=== PATIENT | female | born 1970 | race African-American/Black ===

== ENCOUNTER 2017-06-16 05:24 | Inpatient (IN) ==
[2017-06-09 12:42] LABS: Basophils % 0.7 % (0.0-0.8); Eosinophils # 0.1 10*3/uL (0.0-0.87); Eosinophils % 1.6 % (0.00-10.9); Hematocrit 39.6 VOL% (35.7-47.0); Immature Granulocytes % 0.2 %; Immature Granulocytes Absolute 0.01 #; Lymphocytes % 48.6 % (21.3-54.2); Mean Corpuscular HGB Conc 32.8 GM/DL (32-36); Mean Corpuscular Hemoglobin 29 PG (27-34); Mean Corpuscular Volume 89.6 FL (87-102); Mean Platelet Volume 10.2 FL (9.6-12.0); Monocytes # 0.3 10*3/uL (0.11-0.8); Monocytes % 5.6 % (1.7-12.7); Neutrophils # 2.6 10*3/uL (1.4-7.4); Neutrophils % 43.3 % (38.7-73.9); Platelet Count 316 T/CUMM (130-400); Red Blood Count 4.42 MC/CUMM (3.8-5.5); Red Cell Distribution Width 16.1 % (9.3-17.3); White Blood Count 6.1 T/CUMM (4-12)
[2017-06-09 12:50] LABS: Apearance,Urine CLEAR (Clear); Bilirubin,Urine Negative (Negative); Blood, Urine Negative (Negative); Glucose,Urine (UA) Negative (Negative); INR 0.9; Ketones,Urine Negative (Negative); Mucus,Urine Occasional /LPF (Occasional); Nitrite,Urine Negative (Negative); Partial Thromboplastin Time 27.5 SECS (0-40); Protein,Urine Negative; Squamous Epithelial Cell,Urine Occasional /HPF (0-10); Urine Color Yellow (Yellow); Urine Specific Gravity 1.013 (1.001-1.035); Urine Urobilinogen < 2.0 EU/DL (0.2-1.0); WBC,Urine <1 /HPF (0-6)
[2017-06-09 13:13] LABS: Alanine Aminotransferase 11 U/L (13-56); Albumin 3.1 G/DL (3.4-5.0); Alkaline Phosphatase 63 U/L (45-117); Aspartate Amino Transferase 9 U/L (0-37); Bilirubin,Total < 0.39 MG/DL (0.2-1.0); Blood Urea Nitrogen 9 MG/DL (7-18); Calcium 9.3 MG/DL (8.5-10.1); Glucose 80 MG/DL (74-106); Osmolality,Calculated 274.5 MOS/KG (273-304); Sodium 139 MMOL/L (136-145); Total Protein 7.6 G/DL (6.4-8.3)
[2017-06-16] MEDS ORDERED: ALBUTEROL 2.5 MG/3 ML NEB RESP TX ONE (06:00)
[2017-06-16] MEDS ORDERED: FAMOTIDINE 20 MG TABLET PO ONE (06:00)
[2017-06-16] MEDS ORDERED: DIAZEPAM 5 MG TABLET PO ONE ×2 (06:00→06:53)
[2017-06-16] MEDS ORDERED: VANCOMYCIN INJ 1,000 MG in SODIUM CHLORIDE 0.9% 250 ML IV ONE (06:00)
[2017-06-16] MEDS ORDERED: ceFAZolin 1,000 MG in SYRINGE 1 EACH IV ONE (06:00)
[2017-06-16] MEDS ORDERED: ceFAZolin 1,000 MG VIAL ONE (06:07)
[2017-06-16] MEDS ORDERED: VANCOMYCIN 1,000 MG VIAL ONE (06:07)
[2017-06-16] MEDS ORDERED: DIAZEPAM 5 MG TABLET ONE (06:08)
[2017-06-16] MEDS ORDERED: FAMOTIDINE 20 MG TABLET ONE (06:08)
[2017-06-16] MEDS ORDERED: ROPIVACAINE 0.5% 30 ML VIAL ONE ×2 (06:23→10:09)
[2017-06-16] MEDS ORDERED: TRANEXAMIC ACID 1,000 MG/10 ML VIAL IV ONE (06:39)
[2017-06-16] MEDS ORDERED: LACTATED RINGERS 1,000 ML IV SCH ×2 (07:00→11:30)
[2017-06-16] MEDS ORDERED: TEMAZEPAM 7.5 MG CAPSULE PO PRN (08:54)
[2017-06-16] MEDS ORDERED: LACTULOSE 20 GM/30 ML UDCUP PO PRN (08:54)
[2017-06-16] MEDS ORDERED: MAGNESIUM HYDROXIDE SUSP 30 ML UDCUP PO PRN (08:54)
[2017-06-16] MEDS ORDERED: NALOXONE 0.4 MG/ML VIAL IV PRN (08:54)
[2017-06-16] MEDS ORDERED: BISACODYL 10 MG SUPP RECTAL PRN (08:54)
[2017-06-16] MEDS ORDERED: ONDANSETRON 4 MG/2 ML VIAL IV PRN ×2 (08:54→11:05)
[2017-06-16] MEDS ORDERED: diphenhydrAMINE CAP 25 MG CAPSULE PO PRN (08:54)
[2017-06-16] MEDS ORDERED: MORPHINE 4 MG/1 ML VIAL IV PRN ×2 (08:54→12:43)
[2017-06-16] MEDS ORDERED: PROMETHAZINE 25 MG/1 ML VIAL IM PRN (08:54)
[2017-06-16] MEDS ORDERED: ELETRIPTAN HBR 20 MG PO PRN (08:57)
[2017-06-16] MEDS ORDERED: NITROGLYCERIN SL 0.4 MG TABLET SL PRN (08:57)
[2017-06-16] MEDS ORDERED: HYDROmorphone 2 MG/1 ML VIAL ONE (11:03)
[2017-06-16] MEDS ORDERED: ONDANSETRON 4 MG/2 ML VIAL ONE (11:03)
[2017-06-16] MEDS ORDERED: MIDAZOLAM 2 MG/2 ML VIAL ONE (11:08)
[2017-06-16] MEDS ORDERED: PROPOFOL 200 MG/20 ML VIAL IV ONE (11:08)
[2017-06-16] MEDS ORDERED: SEVOFLURANE 1 UNIT/15 MINUTE INH ONE (11:08)
[2017-06-16] MEDS ORDERED: ROCURONIUM 100 MG/10 ML VIAL IV ONE (11:09)
[2017-06-16] MEDS ORDERED: fentaNYL 100 MCG/2 ML VIAL ONE (11:09)
[2017-06-16] MEDS ORDERED: ACETAMINOPHEN 1,000 MG/100 ML VIAL IV ONE (11:09)
[2017-06-16] MEDS: HYDROmorphone 2 MG/1 ML VIAL IV PRN ×4 (11:11→11:36)
[2017-06-16] MEDS ORDERED: MORPHINE PCA 30 MG/30 ML SYRINGE IV SCH (12:30)
[2017-06-16] MEDS: DULoxetine 30 MG CAPSULE PO SCH (13:17)
[2017-06-16] MEDS: PROPRANOLOL 20 MG TABLET PO SCH (13:17)
[2017-06-16] MEDS: DOCUSATE SODIUM 100 MG CAPSULE PO SCH ×2 (13:17→21:50)
[2017-06-16] MEDS: MELOXICAM 7.5 MG TABLET PO SCH ×2 (13:17→21:49)
[2017-06-16] MEDS: acetaZOLAMIDE 250 MG TABLET PO SCH ×2 (13:17→21:51)
[2017-06-16] MEDS: hydroCHLOROthiazide 12.5 MG CAPSULE PO SCH (13:17)
[2017-06-16] MEDS: PANTOPRAZOLE 40 MG TABLET PO SCH (13:18)
[2017-06-16] MEDS: ESTROGENS (CONJ) 0.3 MG TABLET PO SCH (18:45)
[2017-06-16] MEDS: ceFAZolin 2,000 MG in SYRINGE 1 EACH IV SCH (18:46)
[2017-06-16] MEDS: amLODIPine 5 MG TABLET PO SCH (21:49)
[2017-06-16] MEDS: GABAPENTIN 600 MG TABLET PO SCH (21:49)
[2017-06-16] MEDS: DIVALPROEX ER 500 MG TABLET PO SCH (21:50)
[2017-06-16] MEDS: FONDAPARINUX 2.5 MG/0.5 ML SYRINGE SUBCUT SCH (21:51)
[2017-06-17] MEDS: ceFAZolin 2,000 MG in SYRINGE 1 EACH IV SCH ×3 (01:09→18:20)
[2017-06-17 05:19] LABS: Basophils % 0.2 % (0.0-0.8); Eosinophils % 0.2 % (0.00-10.9); Hematocrit 33.5 VOL% (35.7-47.0); Hemoglobin 11.3 GM/DL (12.0-16.0); Immature Granulocytes % 0.4 %; Immature Granulocytes Absolute 0.03 #; Lymphocytes # 2.7 10*3/uL (1.4-4.0); Lymphocytes % 31.5 % (21.3-54.2); Mean Corpuscular HGB Conc 33.7 GM/DL (32-36); Mean Corpuscular Hemoglobin 30 PG (27-34); Mean Corpuscular Volume 87.7 FL (87-102); Monocytes # 0.7 10*3/uL (0.11-0.8); Monocytes % 8.2 % (1.7-12.7); Neutrophils # 5.1 10*3/uL (1.4-7.4); Neutrophils % 59.5 % (38.7-73.9); Platelet Count 270 T/CUMM (130-400); Red Blood Count 3.82 MC/CUMM (3.8-5.5); Red Cell Distribution Width 16.3 % (9.3-17.3); White Blood Count 8.5 T/CUMM (4-12)
[2017-06-17 05:44] LABS: Calcium 8.1 MG/DL (8.5-10.1); Osmolality,Calculated 279.3 MOS/KG (273-304); Potassium 3.5 MMOL/L (3.5-5.1)
[2017-06-17] MEDS ORDERED: HYDROmorphone 2 MG/1 ML VIAL IM PRN (08:33)
[2017-06-17] MEDS: PANTOPRAZOLE 40 MG TABLET PO SCH (08:59)
[2017-06-17] MEDS: ESTROGENS (CONJ) 0.3 MG TABLET PO SCH (08:59)
[2017-06-17] MEDS: acetaZOLAMIDE 250 MG TABLET PO SCH ×2 (08:59→20:57)
[2017-06-17] MEDS: DOCUSATE SODIUM 100 MG CAPSULE PO SCH ×2 (08:59→20:57)
[2017-06-17] MEDS: HYDROmorphone 2 MG/1 ML VIAL IM PRN ×2 (09:09→23:53)
[2017-06-17] MEDS: MELOXICAM 7.5 MG TABLET PO SCH ×2 (09:20→20:56)
[2017-06-17] MEDS: hydroCHLOROthiazide 12.5 MG CAPSULE PO SCH (09:20)
[2017-06-17] MEDS: PROPRANOLOL 20 MG TABLET PO SCH (09:20)
[2017-06-17] MEDS: DULoxetine 30 MG CAPSULE PO SCH (09:20)
[2017-06-17] MEDS: DIVALPROEX ER 500 MG TABLET PO SCH (20:56)
[2017-06-17] MEDS: amLODIPine 5 MG TABLET PO SCH (20:57)
[2017-06-17] MEDS: GABAPENTIN 600 MG TABLET PO SCH (20:57)
[2017-06-17] MEDS: FONDAPARINUX 2.5 MG/0.5 ML SYRINGE SUBCUT SCH (20:57)
[2017-06-18] MEDS: ceFAZolin 2,000 MG in SYRINGE 1 EACH IV SCH ×3 (01:20→19:26)
[2017-06-18] MEDS: PANTOPRAZOLE 40 MG TABLET PO SCH (10:18)
[2017-06-18] MEDS: DOCUSATE SODIUM 100 MG CAPSULE PO SCH ×2 (10:18→21:47)
[2017-06-18] MEDS: ESTROGENS (CONJ) 0.3 MG TABLET PO SCH (10:19)
[2017-06-18] MEDS: acetaZOLAMIDE 250 MG TABLET PO SCH ×2 (10:21→21:47)
[2017-06-18] MEDS: hydroCHLOROthiazide 12.5 MG CAPSULE PO SCH (10:21)
[2017-06-18] MEDS: DULoxetine 30 MG CAPSULE PO SCH (10:21)
[2017-06-18] MEDS: MELOXICAM 7.5 MG TABLET PO SCH ×2 (10:22→21:48)
[2017-06-18] MEDS: PROPRANOLOL 20 MG TABLET PO SCH (10:22)
[2017-06-18] MEDS: amLODIPine 5 MG TABLET PO SCH (21:47)
[2017-06-18] MEDS: GABAPENTIN 600 MG TABLET PO SCH (21:47)
[2017-06-18] MEDS: FONDAPARINUX 2.5 MG/0.5 ML SYRINGE SUBCUT SCH (21:48)
[2017-06-18] MEDS: DIVALPROEX ER 500 MG TABLET PO SCH (21:48)
[2017-06-19] MEDS: HYDROmorphone 2 MG/1 ML VIAL IM PRN (01:47)
[2017-06-19] MEDS: ceFAZolin 2,000 MG in SYRINGE 1 EACH IV SCH ×2 (01:53→08:33)
[2017-06-19 06:56] LABS: Calcium 7.9 MG/DL (8.5-10.1); Osmolality,Calculated 283.3 MOS/KG (273-304); Potassium 3.2 MMOL/L (3.5-5.1)
[2017-06-19] MEDS: ESTROGENS (CONJ) 0.3 MG TABLET PO SCH (08:33)
[2017-06-19] MEDS: DULoxetine 30 MG CAPSULE PO SCH (08:34)
[2017-06-19] MEDS: hydroCHLOROthiazide 12.5 MG CAPSULE PO SCH (08:34)
[2017-06-19] MEDS: MELOXICAM 7.5 MG TABLET PO SCH (08:34)
[2017-06-19] MEDS: acetaZOLAMIDE 250 MG TABLET PO SCH (08:34)
[2017-06-19] MEDS: PANTOPRAZOLE 40 MG TABLET PO SCH (08:34)
[2017-06-19] MEDS: PROPRANOLOL 20 MG TABLET PO SCH (08:34)
[2017-06-19] MEDS: DOCUSATE SODIUM 100 MG CAPSULE PO SCH (08:36)
[2017-06-19 11:12] VITALS: BP 109/68
== END 2017-06-19 14:05 | disposition swing bed (61) | DRG 470 ==
LOC: N.OR 05:24 → N.SDSINP 05:25 → N.3E 12:12
PROVIDERS: ADMIT Orthopaedic Surgery; ATTEND Orthopaedic Surgery

== ENCOUNTER 2020-11-28 05:57 | Inpatient (IN) ==
[2020-11-27 11:41] LABS: Basophils % 0.6 % (0.0-0.8); Eosinophils # 0.2 10*3/uL (0.0-0.87); Eosinophils % 2.4 % (0.00-10.9); Hematocrit 38.6 VOL% (35.7-47.0); Hemoglobin 12.2 GM/DL (12.0-16.0); Immature Granulocytes % 0.1 %; Immature Granulocytes Absolute 0.01 #; Lymphocytes # 2.1 10*3/uL (1.4-4.0); Lymphocytes % 31.5 % (21.3-54.2); Mean Corpuscular HGB Conc 31.6 GM/DL (32-36); Monocytes % 6.1 % (1.7-12.7); Neutrophils % 59.3 % (38.7-73.9); Platelet Count 216 T/CUMM (130-400); Red Blood Count 4.24 MC/CUMM (3.8-5.5); Red Cell Distribution Width 18.9 % (9.3-17.3); White Blood Count 6.7 T/CUMM (4-12)
[2020-11-27 12:05] LABS: Eosinophils 5 % (0-10); Hypochromasia 1+; Lymphocytes 34 % (20-55); Microcytosis 1+; Platelet Estimate Adequate; Segmented Neutrophils 56 % (50-85); Total Cells Counted 100
[2020-11-27 12:24] LABS: Calcium 9.1 MG/DL (8.5-10.1); Osmolality,Calculated 278.4 MOS/KG (273-304); Potassium 2.8 MMOL/L (3.5-5.1)
[2020-11-28] MEDS ORDERED: ACETAMINOPHEN 325 MG TABLET PO PRN (09:27)
[2020-11-28] MEDS ORDERED: KETOROLAC 15 MG/1 ML VIAL IV PRN (09:27)
[2020-11-28] MEDS ORDERED: BISACODYL 5 MG TABLET PO PRN (09:27)
[2020-11-28] MEDS ORDERED: ONDANSETRON 4 MG/2 ML VIAL IV PRN (09:27)
[2020-11-28] MEDS ORDERED: HYDROmorphone 2 MG/1 ML VIAL IV PRN ×2 (09:27)
[2020-11-28] MEDS ORDERED: POTASSIUM CHLORIDE 20 MEQ TABLET PO PRN ×2 (09:41→09:42)
[2020-11-28] MEDS ORDERED: POTASSIUM CHLORIDE 20 MEQ TABLET PO ONE ×2 (09:42→15:32)
[2020-11-28] MEDS ORDERED: NITROGLYCERIN SL 0.4 MG TABLET SL PRN (09:42)
[2020-11-28] MEDS ORDERED: EPINEPHRINE 0.3 MG/0.3 ML IM PRN (09:42)
[2020-11-28] MEDS ORDERED: AUTO INJECTOR IM PRN (09:42)
[2020-11-28] MEDS: LACTATED RINGERS 1,000 ML IV SCH (09:45)
[2020-11-28] MEDS ORDERED: PANTOPRAZOLE 40 MG TABLET PO SCH (10:00)
[2020-11-28] MEDS: OMALIZUMAB 75 MG/0.5 ML SUBCUT SCH (12:07)
[2020-11-28] MEDS: POTASSIUM CHLORIDE 20 MEQ TABLET PO SCH ×2 (12:15→14:50)
[2020-11-28] MEDS: PREGABALIN 75 MG CAPSULE PO SCH ×2 (14:49→21:38)
[2020-11-28] MEDS: PANTOPRAZOLE 40 MG TABLET PO SCH ×2 (14:50→21:38)
[2020-11-28 15:06] LABS: Calcium 8.5 MG/DL (8.5-10.1); Osmolality,Calculated 281.3 MOS/KG (273-304)
[2020-11-28 21:27] LABS: Calcium 8.4 MG/DL (8.5-10.1); Potassium 3.7 MMOL/L (3.5-5.1)
[2020-11-28] MEDS: CYCLOBENZAPRINE 10 MG TABLET PO PRN (21:36)
[2020-11-28] MEDS: acetaZOLAMIDE 250 MG TABLET PO SCH (21:37)
[2020-11-28] MEDS: sulfaSALAzine 500 MG TABLET PO SCH (21:37)
[2020-11-28] MEDS: GABAPENTIN 600 MG TABLET PO SCH (21:37)
[2020-11-28] MEDS: MONTELUKAST 10 MG TABLET PO SCH (21:38)
[2020-11-28] MEDS: HYDROXYCHLOROQUINE 200 MG TABLET PO SCH (21:38)
[2020-11-29] MEDS: NABUMETONE 500 MG TABLET PO SCH ×3 (02:42→21:21)
[2020-11-29] MEDS: LACTATED RINGERS 1,000 ML IV SCH ×2 (02:43→11:36)
[2020-11-29 06:14] LABS: Calcium 8.5 MG/DL (8.5-10.1); Osmolality,Calculated 283.1 MOS/KG (273-304); Potassium 3.7 MMOL/L (3.5-5.1)
[2020-11-29] MEDS ORDERED: ceFAZolin 2,000 MG/50 ML DUPLEX IV ONE (07:00)
[2020-11-29] MEDS: Umeclidinium-Vilanterol [Anoro Ellipta] 62.5-25 mcg/actuation Bl INH SCH (08:27)
[2020-11-29] MEDS: amLODIPine 5 MG TABLET PO SCH (09:14)
[2020-11-29] MEDS: PROPRANOLOL 20 MG TABLET PO SCH (09:14)
[2020-11-29] MEDS: GABAPENTIN 300 MG CAPSULE PO SCH (09:14)
[2020-11-29] MEDS: PREGABALIN 75 MG CAPSULE PO SCH ×3 (09:15→21:21)
[2020-11-29] MEDS: PANTOPRAZOLE 40 MG TABLET PO SCH ×3 (09:15→21:22)
[2020-11-29] MEDS: NICOTINE 21 MG/24 HR PATCH TRANSDERM SCH (09:15)
[2020-11-29] MEDS: VENLAFAXINE XR 37.5 MG CAPSULE PO SCH (09:51)
[2020-11-29] MEDS: acetaZOLAMIDE 250 MG TABLET PO SCH ×2 (09:51→21:21)
[2020-11-29] MEDS: sulfaSALAzine 500 MG TABLET PO SCH ×2 (09:51→21:21)
[2020-11-29] MEDS: HYDROXYCHLOROQUINE 200 MG TABLET PO SCH ×2 (09:51→21:21)
[2020-11-29] MEDS: SERTRALINE 100 MG TABLET PO SCH (09:52)
[2020-11-29] MEDS: OMALIZUMAB 75 MG/0.5 ML SUBCUT SCH (09:52)
[2020-11-29] MEDS: OLANZapine 5 MG TABLET PO SCH (09:52)
[2020-11-29 10:22] LABS: Basophils % 0.8 % (0.0-0.8); Eosinophils # 0.2 10*3/uL (0.0-0.87); Eosinophils % 3.4 % (0.00-10.9); Hematocrit 33.1 VOL% (35.7-47.0); Hemoglobin 10.7 GM/DL (12.0-16.0); Immature Granulocytes % 0.4 %; Immature Granulocytes Absolute 0.02 #; Lymphocytes # 2.1 10*3/uL (1.4-4.0); Lymphocytes % 44.1 % (21.3-54.2); Mean Corpuscular HGB Conc 32.3 GM/DL (32-36); Mean Corpuscular Volume 91.7 FL (87-102); Mean Platelet Volume 11.8 FL (9.6-12.0); Monocytes % 7.6 % (1.7-12.7); Neutrophils % 43.7 % (38.7-73.9); Platelet Count 177 T/CUMM (130-400); Red Blood Count 3.61 MC/CUMM (3.8-5.5); Red Cell Distribution Width 19.4 % (9.3-17.3); White Blood Count 4.7 T/CUMM (4-12)
[2020-11-29] MEDS ORDERED: MIDAZOLAM 2 MG/2 ML VIAL ONE (10:41)
[2020-11-29] MEDS ORDERED: fentaNYL 100 MCG/2 ML VIAL ONE (10:41)
[2020-11-29 10:42] LABS: Eosinophils 2 % (0-10); Lymphocytes 45 % (20-55); Platelet Estimate Adequate; Segmented Neutrophils 51 % (50-85); Total Cells Counted 100
[2020-11-29 10:43] LABS: Hypochromasia 1+; Microcytosis 1+
[2020-11-29] MEDS ORDERED: BUPIVACAINE 0.5% 50 ML VIAL ONE (10:45)
[2020-11-29] MEDS ORDERED: LIDOCAINE 1%/EPI INJ 20 ML VIAL ONE (10:45)
[2020-11-29] MEDS ORDERED: GABAPENTIN 300 MG CAPSULE PO SCH (12:00)
[2020-11-29] MEDS ORDERED: ROCURONIUM 50 MG/5 ML VIAL IV ONE (13:09)
[2020-11-29] MEDS ORDERED: propofoL 200 MG/20 ML VIAL IV ONE (13:09)
[2020-11-29] MEDS ORDERED: LIDOCAINE 2% 5 ML VIAL ONE (13:09)
[2020-11-29] MEDS ORDERED: SUCCINYLCHOLINE 200 MG/10 ML VIAL ONE (13:09)
[2020-11-29] MEDS ORDERED: GLYCOPYRROLATE 0.4 MG/2 ML VIAL ONE (13:09)
[2020-11-29] MEDS ORDERED: ONDANSETRON 4 MG/2 ML VIAL ONE (13:09)
[2020-11-29] MEDS ORDERED: PHENYLEPHRINE 1 MG/10 ML SYRINGE IV ONE (13:09)
[2020-11-29] MEDS ORDERED: PHENYLEPHRINE 10 MG/1 ML VIAL IV ONE (13:09)
[2020-11-29] MEDS ORDERED: ACETAMINOPHEN INJ 1,000 MG/100 ML VIAL IV ONE (13:09)
[2020-11-29] MEDS ORDERED: DEXAMETHASONE 4 MG/1 ML VIAL ONE (13:09)
[2020-11-29] MEDS ORDERED: SEVOFLURANE 1 UNIT/15 MINUTE INH ONE ×3 (13:22→14:18)
[2020-11-29] MEDS ORDERED: ONDANSETRON 4 MG/2 ML VIAL IV PRN (14:38)
[2020-11-29] MEDS: HYDROmorphone 2 MG/1 ML VIAL IV PRN ×2 (14:42→14:53)
[2020-11-29] MEDS: MONTELUKAST 10 MG TABLET PO SCH (21:21)
[2020-11-29] MEDS: GABAPENTIN 600 MG TABLET PO SCH (21:21)
[2020-11-29] MEDS: CYCLOBENZAPRINE 10 MG TABLET PO PRN (21:22)
[2020-11-30 07:47] LABS: Basophils % 0.2 % (0.0-0.8); Eosinophils % 0.2 % (0.00-10.9); Hemoglobin 9.5 GM/DL (12.0-16.0); Immature Granulocytes % 0.2 %; Immature Granulocytes Absolute 0.02 #; Lymphocytes # 1.9 10*3/uL (1.4-4.0); Lymphocytes % 23.1 % (21.3-54.2); Mean Corpuscular HGB Conc 31.7 GM/DL (32-36); Mean Corpuscular Volume 92.3 FL (87-102); Mean Platelet Volume 11.7 FL (9.6-12.0); Monocytes % 5.1 % (1.7-12.7); Neutrophils % 71.2 % (38.7-73.9); Platelet Count 179 T/CUMM (130-400); Red Blood Count 3.25 MC/CUMM (3.8-5.5); Red Cell Distribution Width 19.6 % (9.3-17.3); White Blood Count 8.1 T/CUMM (4-12)
[2020-11-30 08:04] LABS: Calcium 8.5 MG/DL (8.5-10.1); Potassium 3.8 MMOL/L (3.5-5.1)
[2020-11-30 08:09] VITALS: BP 109/58
[2020-11-30 08:15] LABS: Eosinophils 1 % (0-10); Hypochromasia 1+; Lymphocytes 25 % (20-55); Microcytosis 1+; Platelet Estimate Adequate; Segmented Neutrophils 70 % (50-85); Total Cells Counted 100
[2020-11-30] MEDS: NICOTINE 21 MG/24 HR PATCH TRANSDERM SCH (09:19)
[2020-11-30] MEDS: acetaZOLAMIDE 250 MG TABLET PO SCH (09:20)
[2020-11-30] MEDS: GABAPENTIN 300 MG CAPSULE PO SCH (09:20)
[2020-11-30] MEDS: HYDROXYCHLOROQUINE 200 MG TABLET PO SCH (09:20)
[2020-11-30] MEDS: sulfaSALAzine 500 MG TABLET PO SCH (09:20)
[2020-11-30] MEDS: PROPRANOLOL 20 MG TABLET PO SCH (09:20)
[2020-11-30] MEDS: PANTOPRAZOLE 40 MG TABLET PO SCH (09:20)
[2020-11-30] MEDS: OLANZapine 5 MG TABLET PO SCH (09:20)
[2020-11-30] MEDS: VENLAFAXINE XR 37.5 MG CAPSULE PO SCH (09:21)
[2020-11-30] MEDS: NABUMETONE 500 MG TABLET PO SCH (09:21)
[2020-11-30] MEDS: amLODIPine 5 MG TABLET PO SCH (09:21)
[2020-11-30] MEDS: SERTRALINE 100 MG TABLET PO SCH (09:22)
[2020-11-30] MEDS: PREGABALIN 75 MG CAPSULE PO SCH (09:22)
[2020-11-30] MEDS: OMALIZUMAB 75 MG/0.5 ML SUBCUT SCH (10:41)
[2020-11-30] MEDS: Umeclidinium-Vilanterol [Anoro Ellipta] 62.5-25 mcg/actuation Bl INH SCH (10:41)
[2020-11-30] MEDS ORDERED: CETIRIZINE 10 MG TABLET PO SCH (21:00)
== END 2020-11-30 12:50 | disposition home health service (06) | DRG 405 ==
LOC: N.OR 05:57 → N.SDSINP 06:00 → N.TELEN 11:47
PROVIDERS: ADMIT Surgery; ATTEND Surgery